=== PATIENT | male | born 1940 | race Caucasian/White ===

== ENCOUNTER 2024-03-08 08:08 | Emergency (ER) | payer MEDICARE, SELFPAY ==
[2024-03-08] VITALS (48 sets, daily range): BP systolic 97–162; BP diastolic 68–99; PULSE 69–160; RESP 12–18; TEMP 37.1; O2SAT 91–98
--- NOTE | 2024-03-08 08:19 | ECG_ITS ---
[facility] Test Date: 2024-03-08 Pat Name: Daniel Hurtado Department: Room: Gender: Male Settlement Clerk: : 1940 Requested By: Bernard Cherry Order Number: [id number] Teresa MD: Joe Pruitt M.D. Measurements Intervals [place] Rate: 69 P: 21 DC: 209 QRS: 13 QRSD: 86 T: 34 QT: 369 QTc: 396 Interpretive Statements SINUS RHYTHM Compared to ECG 03/08/2024 10:20:24 Atrial fibrillation no longer present ST (T wave) deviation no longer present Electronically Signed On 03-09-2024 12:13:13 CDT by Joe Pruitt M.D. [id number] f
--- NOTE | 2024-03-08 08:20 | XRR_ITS ---
PROCEDURE INFORMATION: Exam: XR Chest Exam date and time: 03/08/2024 8:30 AM Age: 83 years old Clinical indication: Cough and dyspnea; Additional info: Dyspnea/cough TECHNIQUE: Imaging protocol: Radiologic exam of the chest. Views: 1 view. COMPARISON: No relevant prior studies available. FINDINGS: Lungs: Mild left basilar lung atelectasis versus developing infiltrate. Suspected myvj-gb-hqaojpts right basilar lung consolidation. Mild right mid lung subsegmental atelectasis Pleural spaces: Mild right pleural effusion, which appears layering versus loculated.. No pneumothorax. Heart/Mediastinum: 19 mm right inferior hilar nodular appearing opacity; cannot exclude adenopathy in this region. No cardiomegaly. Bones/joints: No suspicious osseous findings XR/XR chest 1V portable [id number] IMPRESSION: Chhdl-msxebkf-mzpj-left lung base opacities . See above.
--- NOTE | 2024-03-08 08:21 | ED_ITS ---
HPI - Arrhythmia/Palpitations 2 General: Chief Complaint: Arrhythmia/Palpitations Stated Complaint: elevated hr Time Seen by Provider: 03/08/24 08:17 History of Present Illness: 83-year-old male presents emergency room with rapid heart rate increasing weakness for last couple of days. Few weeks ago was diagnosed with pneumonia. Completed course antibiotics but is still having shortness of breath and generally not feeling well denies any hemoptysis with any activity becomes short of breath. Course 2 Vital Signs: Vital signs: Vital Signs Temperature 98.8 F 03/08/24 08:14 Pulse Rate 70 03/08/24 13:20 Respiratory Rate 16 03/08/24 10:05 Blood Pressure 162/90 03/08/24 13:20 Pulse Oximetry 98 03/08/24 13:20 Oxygen Delivery Me thod Room Air 03/08/24 09:44 MDM - Arrhythmia/Palpitations Medical Decision Making Patient initially presented A-fib with RVR started on Cardizem he did not respond well to that and after titrating up to 15 mg/h we stopped Cardizem and switch to amiodarone. During that same timeframe chest x-ray shows large right pleural effusion CT of the chest was done no PE but did show loculated effusion concerning for a subpulmonic empyema. Cultures done started on antibiotics. Amiodarone did convert to a normal sinus rhythm and we are able to titrate that down and off. Reviewed the case Dr. Sultana initially with plan to admit here however we do not have any pulmonology back up with Dr. Hull is not available either. Ultrasound done with the electrical manufacturing technician at the bedside the effusion is very loculated I do not think we will be able to do a thoracentesis here to get a sample. Dr. Byron Sommers agree patient should be transferred somewhere where pulmonology is available to do a further evaluation to make sure that the patient does not have subpulmonic empyema as opposed to an effusion. Abraham has excepted patient on transfer. Lab Data 03/08/24 08:24 03/08/24 08:24 Radiology Impressions Chest X-Ray 03/08/24 08:20 IMPRESSION: Vfylg-mpstbde-expo-left lung base opacities . See above. Chest CTA 03/08/24 09:02 IMPRESSION: 1. Patient motion artifact degrades the images and limits evaluation. 2. No pulmonary embolism demonstrated. 3. Near-complete RLL collapse, with large pleural effusion surrounding the collapsed RLL, and large loculations of effusion along the right major fissure. Cannot exclude a right subpulmonic effusion component. 4. Lingular and LLL mild tree-in-bud opacities with scattered patchy mild consolidative changes. 5. Chronic findings as above COMMENTS: Consistent with the [employer]'s Incidental Findings Committee white paper (J Am Kimi Radiol 2015): In patients aged 35 years and older with an incidental thyroid nodule equal to or greater than 1.[address], MRI or extrathyroidal US, further evaluation with dedicated thyroid US is recommended for patients with normal life expectancy and without comorbidities. For smaller nodules without suspicious features, no further evaluation or follow up is recommended. Gallbladder Ultrasound 03/08/24 10:18 IMPRESSION: 1. Gallbladder sludge with no changes of acute cholecystitis. No biliary dilatation. 2. Right simple renal cysts. Laboratory Results WBC 16.87 10^3/uL (3.29-11.43) H 03/08/24 08:24 RBC 4.40 10^6/uL (3.85-5.65) 03/08/24 08:24 Hgb 12.30 g/dL (11.27-16.99) 03/08/24 08:24 Hct 36.1 % (37-53) L 03/08/24 08:24 MCV 82.0 fl (82-101) 03/08/24 08:24 MCH 28.0 pg (27-33) 03/08/24 08:24 MCHC 34.1 g/dL (30-55) 03/08/24 08:24 RDW 15.2 % (12.1-15.1) H 03/08/24 08:24 Plt Count 710 10^3/cmm (157-399) H 03/08/24 08:24 MPV 8.5 fL (7.4-10.4) 03/08/24 08:24 Neut % (Auto) 78.7 % 03/08/24 08:24 Lymph % (Auto) 6.8 % 03/08/24 08:24 [place] % (Auto) 13.2 % 03/08/24 08:24 Eos % (Auto) 0.3 % 05/04/24 08:24 Baso % (Auto) 0.2 % 03/08/24 08:24 Neut # (Auto) 13.27 10^3/uL (1.8-7.7) H 03/08/24 08:24 Lymph # (Auto) 1.2 10^3/uL (0.8-4.8) 03/08/24 08:24 [place] # (Auto) 2.2 10^3/uL (0.2-0.9) H 03/08/24 08:24 Eos # (Auto) 0.1 10^3/uL (0.0-0.8) 03/08/24 08:24 Baso # (Auto) 0.0 10^3/uL (0.0-0.1) 03/08/24 08:24 Nucleated RBC % (auto) 0 % 03/08/24 08:24 Nucleated RBCs # 0.0 /100WBC 03/08/24 08:24 Sodium 127 mmol/L (136-145) L 03/08/24 08:24 Potassium 4.0 mmol/L (3.5-5.1) 03/08/24 08:24 Chloride 94 mmol/L (98-107) L 03/08/24 08:24 Carbon Dioxide 20 mmol/L (22-29) L 03/08/24 08:24 Anion Gap 17.0 (5-19) 03/08/24 08:24 BUN 24 mg/dL (8-23) H 03/08/24 08:24 Creatinine 1.7 mg/dL (0.7-1.2) H 03/08/24 08:24 GFR Calculation Not Reportable 03/08/24 08:24 Glucose 123 mg/dL (65-115) H 03/08/24 08:24 Calculated Osmolality 269 mOsm/kg (285-295) L 03/08/24 08:24 Lactic Acid 1.7 mmol/L (0.5-2.2) 03/08/24 08:24 Calcium 8.8 mg/dL (8.5-10.5) 03/08/24 08:24 Total Bilirubin 0.5 mg/dL (0.15-1.2) 03/08/24 08:24 AST 89 U/L (0-40) H 03/08/24 08:24 ALT 127 U/L (0-41) H 03/08/24 08:24 Alkaline Phosphatase 285 U/L (40-130) H 03/08/24 08:24 Troponin T Baseline 19 ng/L (0-15) H 03/08/24 08:24 Troponin T 120 Minute 19.92 ng/L (0-15) H 03/08/24 11:30 Delta Troponin T 0.92 ABS# (0-10) 03/08/24 11:30 NT-Pro-B Natriuret Pep 914 pg/mL (0-450) H 03/08/24 08:24 Total Protein 7.2 g/dL (6.6-8.7) 03/08/24 08:24 Albumin 2.9 g/dL (3.5-5.2) L 03/08/24 08:24 Globulin 4.3 g/dL (1.3-4.6) 03/08/24 08:24 Procalcitonin 0.61 ng/mL (0-0.5) H 03/08/24 08:24 TSH 12.34 uIU/mL (0.27-4.20) H 03/08/24 08:24 Adenovirus (PCR) Not detected (NOT DETECT) 03/08/24 09:49 C. pneumoniae DNA (PCR) Not detected (NOT DETECT) 03/08/24 09:49 Coronavirus 229E (PCR) Not detected (NOT DETECT) 03/08/24 09:49 Human Metapneumovir PCR Not detected (NOT DETECT) 03/08/24 09:49 Influenza A (H1) PCR Not detected (NOT DETECT) 03/08/24 09:49 Influ A (H1/09) PCR Not detected (NOT DETECT) 03/08/24 09:49 Influenza A (H3) PCR Not detected (NOT DETECT) 03/08/24 09:49 Influenza Type A (PCR) Not detected (NOT DETECT) 03/08/24 09:49 Influenza Type B (PCR) Not detected (NOT DETECT) 03/08/24 09:49 M. pneumoniae (PCR) Not detected (NOT DETECT) 03/08/24 09:49 Parainfluenza 1 (PCR) Not detected (NOT DETECT) 03/08/24 09:49 Parainfluenza 2 (PCR) Not detected (NOT DETECT) 03/08/24 09:49 Parainfluenza 3 (PCR) Not detected (NOT DETECT) 03/08/24 09:49 Parainfluenza 4 (PCR) Not detected (NOT DETECT) 03/08/24 09:49 RSV Type A (PCR) Not detected (NOT DETECT) 03/08/24 09:49 RSV Type B (PCR) Not detected (NOT DETECT) 03/08/24 09:49 Entero/Rhino (PCR) Not detected (NOT DETECT) 03/08/24 09:49 SARS-CoV-2 (PCR) Not detected (NOT DETECT) 03/08/24 09:49 All radiology interpretation(s) finalized by discharge Discharge Plan Discharge Patient Disposition: Xfer Short-Term Hosp Clinical Impression: Atrial fibrillation, Pleural effusion, Hyponatremia, MIRNA (acute kidney injury) Condition: Stable Prescriptions: No Action tizanidine 4 mg tablet 2 mg PO BID PRN (Reason: Muscle Spasm) bisoprolol fumarate 5 mg tablet 5 mg PO QPM Rx Instructions: on hold 03/08/2024 simvastatin 20 mg tablet 20 mg PO QAM losartan 100 mg tablet 100 mg PO QAM Rx Instructions: on hold 03/08/24 Mucus Relief Lwak-Ljb-Faac Thr 0-12-242-200 mg Tablet 1 tab PO Q4H PRN (Reason: Cold Symptoms) Referrals: Axel Bustamante DO [Primary Care Provider] - Coding Level of Care Code ED Architectural Associate for Ever Cortes
[2024-03-08 08:30] LABS: Basophils % 0.2 %; Eosinophils # 0.1 10^3/uL (0.0-0.8); Eosinophils % 0.3 %; Hematocrit 36.1 % (37-53); Lymphocytes # 1.2 10^3/uL (0.8-4.8); Lymphocytes % 6.8 %; Mean Corpuscular HGB Conc 34.1 g/dL (30-55); Mean Platelet Volume 8.5 fL (7.4-10.4); Monocytes # 2.2 10^3/uL (0.2-0.9); Monocytes % 13.2 %; Neutrophils # 13.27 10^3/uL (1.8-7.7); Neutrophils % 78.7 %; Nucleated Red Blood Cells % 0 %; Platelet Count 710 10^3/cmm (157-399); Red Cell Distribution Width 15.2 % (12.1-15.1); White Blood Count 16.87 10^3/uL (3.29-11.43)
[2024-03-08] MEDS: dilTIAZem 5 mg/mL SDV 5 mL 10 MG IVP (08:33)
[2024-03-08] MEDS: dilTIAZem 100 MG in sodium chloride 0.9% (add-van) 100 ML IV (08:37)
[2024-03-08 08:52] LABS: Troponin(5th) Baseline 19 ng/L (0-15)
[2024-03-08 08:57] LABS: Alanine Aminotransferase 127 U/L (0-41); Albumin Level 2.9 g/dL (3.5-5.2); Alkaline Phosphatase 285 U/L (40-130); Aspartate Amino Transferase 89 U/L (0-40); Blood Urea Nitrogen 24 mg/dL (8-23); Calcium 8.8 mg/dL (8.5-10.5); Carbon Dioxide 20 mmol/L (22-29); Chloride 94 mmol/L (98-107); Globulin 4.3 g/dL (1.3-4.6); Glucose 123 mg/dL (65-115); Osmolality Calculated 269 mOsm/kg (285-295); Sodium 127 mmol/L (136-145); Thyroid Stimulating Hormone 12.34 uIU/mL (0.27-4.20); Total Bilirubin 0.5 mg/dL (0.15-1.2); Total Protein 7.2 g/dL (6.6-8.7)
--- NOTE | 2024-03-08 09:02 | CTR_ITS ---
PROCEDURE INFORMATION: Exam: CTA Chest With Contrast Exam date and time: 03/08/2024 9:29 AM Age: 83 years old Clinical indication: Dyspnea; Additional info: Peristent pneumonia, chest discomfort, new onset afib TECHNIQUE: Imaging protocol: Computed tomographic angiography of the chest with contrast. Exam focused on the arteries. 3D rendering (Not supervised by radiologist): MIP and/or 3D reconstructed images were created by the technologist. Radiation optimization: All CT scans at this facility use at least one of these dose optimization techniques: automated exposure control; mA and/or kV adjustment per patient size (includes targeted exams where dose is matched to clinical indication); or iterative reconstruction. Contrast material: OMNI 350; Contrast volume: 67 ml; Contrast route: INTRAVENOUS (IV); COMPARISON: CR (CHEST, ) 03/08/2024 8:30 AM RADIATION DOSE METRICS: Total DLP (mGy-cm): 436.73 FINDINGS: Pulmonary arteries: Normal. No pulmonary emboli. Aorta: Upper limits of normal ascending and descending thoracic aorta measuring 40 mm. Thyroid: Left thyroid lobe subcentimeter hypodense nodule; consider nonemergent thyroid ultrasound follow-up for further characterization. Lungs: Near-complete RLL collapse, with large joint effusion surrounding the collapsed lobe, and large loculations effusion along right major fissure. Cannot exclude a right subpulmonic effusion component. Right apical lung nodular pleural thickening and scarring/subsegmental atelectasis. Lingular and LLL mild tree-in-bud opacities with scattered patchy mild consolidative changes. Pleural spaces: See Bones/joints finding. Heart: Borderline to mild cardiomegaly. Lymph nodes: Unremarkable. No enlarged lymph nodes. Pancreas: Prominent pancreatic atrophy Adrenal glands: Indeterminate 8 mm left adrenal nodule. Bones/joints: No suspicious osseous findings. Soft tissues: Unremarkable. CT/CT angio chest PE protcl [id number] IMPRESSION: 1. Patient motion artifact degrades the images and limits evaluation. 2. No pulmonary embolism demonstrated. 3. Near-complete RLL collapse, with large pleural effusion surrounding the collapsed RLL, and large loculations of effusion along the right major fissure. Cannot exclude a right subpulmonic effusion component. 4. Lingular and LLL mild tree-in-bud opacities with scattered patchy mild consolidative changes. 5. Chronic findings as above COMMENTS: Consistent with the [employer] [employer]'s Incidental Findings Committee white paper (J Am Kimi Radiol 2015): In patients aged 35 years and older with an incidental thyroid nodule equal to or greater than 1.[address], MRI or extrathyroidal US, further evaluation with dedicated thyroid US is recommended for patients with normal life expectancy and without comorbidities. For smaller nodules without suspicious features, no further evaluation or follow up is recommended.
--- NOTE | 2024-03-08 09:11 | PC.PHAR ---
pts sister verified pts medications-states the pt finished his prednisone 10mg daily filled 02/23/24 7d/s and doxycycline hyclate 100mg bid filled 02/23/24 10d/s states finished about a week ago-pts sister states put the pts bisoprolol 5mg qpm filled 01/02/2024 90d/s and losartan 100mg qam ext shows last filled 03/18/2023 90d/s both on hold states pt not taken since 03/02/2024-pts sister states the pt is still taking zocor 20mg qam ext shows last filled 03/18/2023 90d/s-pts sister states the pt has been taking some otc mucus relief cold flu and sore throat pill from [facility]-notes are made in the pharmacy comments
[2024-03-08 09:19] LABS: Lactic Sepsis W/Reflex 1.7 mmol/L (0.5-2.2)
[2024-03-08] MEDS: iohexol 350 mg/mL 500 mL Btl (per mL) IV (09:33)
[2024-03-08] MEDS: piperacillin-tazobactam 3.375 GM in sodium chloride 0.9% (plus) 50 ML IV (10:16)
--- NOTE | 2024-03-08 10:18 | USR_ITS ---
PROCEDURE INFORMATION: Exam: US Abdomen, Limited; Right Upper Quadrant Exam date and time: 03/08/2024 10:41 AM Age: 83 years old Clinical indication: Abnormal findings; Abnormal lab test; Abnormal function test of other organs/systems; Additional info: Elevated lft TECHNIQUE: Imaging protocol: Real time ultrasound of the abdomen with image documentation. Limited exam focused on the right upper quadrant. COMPARISON: CT angio chest PE protcl [id number] 03/08/2024 9:29 AM FINDINGS: Liver: Normal. No masses. The liver measures 15.1 cm. Gallbladder: Gallbladder sludge. There is no gallbladder wall thickening. Biliary ducts: Normal. No stones. No dilation. Pancreas: Not well visualized. Right kidney: Normal. No mass. No hydronephrosis. Right kidney measures 10 x 5 x 3.8 cm with renal cortex measuring 1.2 cm. There is a 1.2 x 1.1 x 1 cm simple cyst in the interpolar region of the right kidney. US/US gall bladder [id number] IMPRESSION: 1. Gallbladder sludge with no changes of acute cholecystitis. No biliary dilatation. 2. Right simple renal cysts.
--- NOTE | 2024-03-08 10:20 | ECG_ITS ---
[facility] Test Date: 2024-03-08 Pat Name: Daniel Hurtado Department: Room: Gender: Male Vice President Quality: : 1940 Requested By: Bernard Cherry Order Number: [id number] Teresa MD: Joe Pruitt M.D. Measurements Intervals [place] Rate: 135 P: 0 MA: 0 QRS: 5 QRSD: 81 T: 39 QT: 295 QTc: 443 Interpretive Statements ATRIAL FIBRILLATION WITH RAPID VENTRICULAR RESPONSE MODERATE ST DEPRESSION [0.05+ mV ST DEPRESSION] No previous ECG available for comparison Electronically Signed On 03-09-2024 12:45:26 CDT by Joe Pruitt M.D. [email or web address] Swedenforrest general hospitalNano Defense Solutionsmer[facility].[email or web address]/store/[id number]
--- NOTE | 2024-03-08 10:23 | PC.NURSE ---
per Dr. Puga to increase Cardizem drip to 15mg/hr
[2024-03-08 10:53] LABS: NT Pro B Type Natriuretic Pept 914 pg/mL (0-450); Procalcitonin 0.61 ng/mL (0-0.5)
--- NOTE | 2024-03-08 11:06 | P.CONIM_ITS ---
Providers/Reason For Consult 2 Consulting Physician/Specialty*: Dr. Sultana/internal medicine. Reason for Consult*: Atrial fibrillation, shortness of breath, pneumonitis, possible empyema Primary Care Provider: Axel Bustamante DO History of Present Illness History of Present Illness Daniel Hurtado is a 83 year old male, hard of hearing with past medical history of hypertension, recent pneumonia treated with oral antibiotics presented to the ER because of difficulty in breathing, chest pain and palpitations for last few days worsening today morning associated with weakness and difficulty breathing. In the ER he was found to have a heart rate of more than 150 for which he was started on a Cardizem drip. Medicine was consulted for further management. CT chest was obtained which was concerning for significant right-sided lower lobe pneumonia with concerns for bronchial obstruction and pleural effusion with high concern for empyema. Review of Systems 2 General: Reports: 10 or more systems reviewed and unremarkable except in HPI and below Const: Denies: fever(s), chills, body aches, change in appetite, change in weight, malaise, night sweats, diaphoresis, change in sleep pattern, daytime sleepiness or snoring Eyes: Denies: change in vision, blurry vision, photophobia, eye discomfort or eye discharge ENMT: Denies: throat pain, enlarged tonsils, hoarseness, mouth pain, oral sores, dry mouth, tinnitus, nasal congestion or post nasal drip Card: Denies: chest pain, palpitations, irregular heart rhythm, edema, swelling of feet/ankles, lightheadedness, syncope, pre-syncope, dyspnea on exertion, orthopnea, leg pain with exertion or acrocyanosis Resp: Denies: dyspnea, productive cough, non-productive cough, wheezing, stridor, pain on inspiration, change in phlegm color, hemoptysis or chest congestion GI: Denies: abdominal pain, nausea, vomiting, hematemesis, coffee ground emesis, dysphagia, heartburn, diarrhea, constipation, bloating, GI cramping, change in bowel habits, pain on defecation, hematochezia or melena : Denies: flank pain, difficulty urinating, dysuria, urinary frequency, urinary urgency, urinary hesitancy, urinary dribbling, difficulty starting urination, change in urine stream, nocturia or hematuria Musc: Denies: neck pain, back pain, extremity pain, joint pain, joint swelling, joint redness, joint stiffness or limited range of motion Neuro: Denies: headache(s), numbness in extremities, weakness in extremities, sensory changes, lack of coordination, difficulty walking, frequent falls, dizziness, vertigo, confusion, Slurred speech present, difficulty communicating thoughts or seizure-like activity Psych: Denies: anxiety, depression, mood swings, panic attacks, hopelessness or irritability Endo: Denies: polyuria, polydipsia, tired all the time, cold intolerance, excessive sweating, flushing or heat intolerance Bhanu/Lymph: Denies: easy bruising or easy bleeding All/Imm: Denies: tongue swelling, facial swelling or acute wheezing Medications/Allergies Home Medications Medication Instructions Recorded Confirmed Last Taken Type bisoprolol fumarate 5 mg tablet 5 mg PO QPM 03/08/24 03/08/24 6 Days Ago History ~03/02/24 losartan 100 mg tablet 100 mg PO [facility] 03/08/24 03/08/24 6 Days Ago History ~03/02/24 vsppfjtjzlbcn-ES-vcnqpputnifis-guaifen 1 tab PO Q4H PRN Cold Symptoms 03/08/24 03/08/24 03/08/24 06:00 History 5 mg-10 mg-325 mg-200 mg tablet (Mucus Relief Lukk-Wuz-Vagy Throat) simvastatin 20 mg tablet 20 mg PO QAM 03/08/24 03/08/24 03/08/24 History tizanidine 4 mg tablet 2 mg PO BID PRN Muscle Spasm 03/08/24 03/08/24 Unknown History Allergies Allergy/AdvReac Type Severity Reaction Status Date / Time No Known Allergies Allergy Verified 03/08/24 08:50 Current Medications Generic Name Dose Route Start Last Admin Trade Name Freq PRN Reason Stop Dose Admin Diltiazem HCl 100 mg/ Sodium 100 mls @ 0 mls/hr 03/08/24 08:30 03/08/24 10:23 Chloride IV 15 mg/hr .Q0M YULIANA 15 mls/hr Titration Protocol Per Protocol Vitals/I&O/Wt Last Vital Signs Temp 98.8 F 03/08/24 08:14 Pulse 116 H 03/08/24 10:15 Resp 16 03/08/24 10:05 BP 144/88 03/08/24 10:15 Pulse Ox 95 03/08/24 10:15 O2 Del Method Room Air 03/08/24 09:44 03/07/24 03/08/24 03/08/24 22:59 06:59 14:59 Intake Total 13.416 / 13.416 Balance 13.416 / 13.416 Weight last 48 hrs Weight 94.347 kg Physical Exam 2 Narrative: General: No acute distress, AO x3, hard of hearing HEENT: PERRLA, pupils bilaterally equal and reactive Chest: Normal vesicular breath sounds, coarse rattle present in right lower zone, decreased air entry in right lower zone CVS: S1-S2 irregularly irregular, tachycardia, no gallops, no rubs Abdomen: Soft, nontender, no organomegaly, bowel sounds present Neuro: No focal deficits, no facial deformity, AO x3, power 5/5 in all limbs Data 03/08/24 08:24 03/08/24 08:24 Micro: Microbiology 03/08/24 10:05 Blood Culture - Preliminary Blood SPECIMEN COLLECTED 03/08/24 10:04 Blood Culture - Preliminary Blood SPECIMEN COLLECTED A&P Assessment and plan (1) Sepsis: SIRS: Tachycardic, Febrile, Leukocytosis Source: Right lower lobe pneumonia End organ damage: Atrial fibrillation Lactic acid within normal limits Patient did not receive full 30 mL/kg BW with concerns for fluid overload as he is in atrial fibrillation with rapid ventricular response. Monitor blood pressures. Keep mean artery pressure 65 mmHg. Blood culture, urine culture, MRSA swab, procalcitonin, urine Legionella, bacterial antigen. Check CT chest given recent history of pneumonia. Empirically start on IV vancomycin and Zosyn. Check sputum culture, urine Legionella, bacterial antigen, MRSA swab. De-escalate antibiotics as per culture results. (2) Right lower lobe pneumonia: Recent failed outpatient oral antibiotic therapy. Concerns for bronchial obstruction. Patient will benefit from bronchoscopy and possible suctioning versus further evaluation of lung mass. Antibiotics as #1. (3) Pleural effusion: High concerns for empyema given failure of recent outpatient oral antibiotic. Leukocytosis present. Care discussed in detail with pulmonology who is not available currently. Patient would need diagnostic aspiration of the fluid and most likely would also need chest tube placement. Discussed in detail with Dr. Felton. He tried for diagnostic pleural tap but could not achieve given high loculation of the pleural fluid. Given high concerns for empyema patient needs higher level care with speciality of pulmonology or IR for diagnostic pleural tap placement which is not available in our hospital for next 48 hours. Given the same patient was advised to be transferred to a higher center. (4) Atrial fibrillation: Currently on Cardizem drip. Blood pressure soft. Transition over to IV amiodarone with 150 mg IV bolus. If patient converts to normal sinus rhythm will transition over to oral metoprolol. If patient continues in atrial fibrillation for more than 48 hours we will plan for anticoagulation with Eliquis versus Lovenox. (5) Hyponatremia: Most likely in setting of dehydration. Gentle IV hydration with normal saline at 75 cc/h. Repeat BMP in AM. (6) MIRNA (acute kidney injury): Medical reconciliation done for nephrotoxic drugs. Patient takes losartan at home. Most likely in setting of sepsis, dehydration along with home dose of losartan. Check urine lites, urine creatinine, urine eosinophils, CT abdomen pelvis to rule out obstructive nephropathy. Monitor BMP daily. Plan Full code Consult Attestations 2 Medical Necessity Statement: Patient needs to be transferred to a higher center for management of empyema with need of pulmonology or IR for chest tube placement versus diagnostic pleural tap while continuing on IV antibiotics and treatment of atrial fibrillation Diagnoses Sepsis A41.9 Right lower lobe pneumonia J18.9 Pleural effusion J90 Atrial fibrillation I48.91 Hyponatremia E87.1 MIRNA (acute kidney injury) N17.9
[2024-03-08] MEDS: amiodarone 150 MG/100 ML PREMIX 400 MG IV (11:19)
[2024-03-08 12:01] LABS: Troponin 5 2HR 19.92 ng/L (0-15); Troponin 5 2HR Delta 0.92 ABS# (0-10)
[2024-03-08 13:19] LABS: Adenovirus Not Detected (NOT DETECT); Chlamydia Pneumoniae Not Detected (NOT DETECT); Coronavirus 229E,HKU1,NL63,OC4 Not Detected (NOT DETECT); Human Metapneumovirus Not Detected (NOT DETECT); Human Rhinovirus/Enterovirus Not Detected (NOT DETECT); Influenza A Not Detected (NOT DETECT); Influenza A H1 Not Detected (NOT DETECT); Influenza A H1-2009 Not Detected (NOT DETECT); Influenza A H3 Not Detected (NOT DETECT); Influenza B Not Detected (NOT DETECT); Mycoplasma Pneumoniae Not Detected (NOT DETECT); Parainfluenza Virus Type 1 Not Detected (NOT DETECT); Parainfluenza Virus Type 2 Not Detected (NOT DETECT); Parainfluenza Virus Type 3 Not Detected (NOT DETECT); Parainfluenza Virus Type 4 Not Detected (NOT DETECT); Respiratory Syncytial Virus A Not Detected (NOT DETECT); Respiratory Syncytial Virus B Not Detected (NOT DETECT); SARS-COV-2 Not Detected (NOT DETECT)
--- NOTE | 2024-03-08 14:14 | PC.NURSE ---
report called to Abraham Hdz to Key Peterson, no further questions verbalized at end of report.
--- NOTE | 2024-03-08 14:19 | ECG_ITS ---
[facility] Test Date: 2024-03-08 Pat Name: Daniel Hurtado Department: Room: Gender: Male Custodian Manager: : 1940 Requested By: Bernard Cherry Order Number: [id number] Teresa MD: Joe Pruitt M.D. Measurements Intervals [place] Rate: 119 P: 0 SC: 0 QRS: 46 QRSD: 87 T: 37 QT: 289 QTc: 407 Interpretive Statements ATRIAL FIBRILLATION WITH RAPID VENTRICULAR RESPONSE ST DEPRESSION, CONSIDER SUBENDOCARDIAL INJURY [0.1+ mV ST DEPRESSION] No previous ECG available for comparison Electronically Signed On 03-09-2024 12:45:35 CDT by Joe Pruitt M.D. [email or web address].[email or web address]/[id number]
[2024-03-08 15:08] LABS: Troponin 5 6HR 19.72 ng/L (0-15); Troponin 5 6HR Delta 0.72 ng/L (0-12)
== END 2024-03-08 14:45 | disposition short-term general hospital (02) ==
PROVIDERS: Emergency Provider Family Medicine; PCP Internal Medicine
DX: I48.91 Unspecified atrial fibrillation (principal); J90 Pleural effusion, not elsewhere classified; E87.1 Hypo-osmolality and hyponatremia; N17.9 Acute kidney failure, unspecified; Z11.52 Encounter for screening for COVID-19
CPT/HCPCS: 36415; 71045; 71275; 76705; 80053; 83605; 83880; 84145; 84443; 84484; 85025; 87040; 87486; 87581; 87633; 93005; 96365; 96366; 96367; 96375; 99285; J0283; J2543; J3490; Q9967

== ENCOUNTER 2024-11-28 08:56 | Outpatient (CLI) | payer MEDICARE, SELFPAY ==
--- NOTE | 2024-11-28 09:01 | USCV_ITS ---
Daniel Hurtado Age: 84 Gender: M : 1940 Exam Date: 11/28/2024 09:16 Ordering Phys: Axel Bustamante DO Technologist: CT Exam Location: [facility] [place]_ Indication: BP: / HR: 45 Rhythm: Sinus Technical Quality: Adequate MEASUREMENTS (Male / Female) Normal Values 2D ECHO LVOT Diameter 2.1 cm LV Ejection Fraction MOD 4C 64.1 % LV Ejection Fraction MOD 2C 69.5 % LV Ejection Fraction 2C AL 71.0 % LA Diameter 2.6 cm RA Systolic Volume 4C AL 68.1 ml RA Systolic Volume 4C MOD 68.3 ml LA Sys Volume AL 68.2 cm cubed LA Sys Volume Index AL 30.9 cm cubed/m squared Aorta at Sinotubular Diameter 3.2 cm IVC Diameter 2.4 cm M-MODE LA Ao Ratio MM 1.1 AV Cusp Separation MM 2.0 cm DOPPLER AV Peak Velocity 160.0 cm/s LVOT Peak Velocity 98.0 cm/s AV Area Cont Eq vti 2.0 cm squared AV Area Cont Eq pk 2.0 cm squared MV Peak Velocity 88.0 cm/s MV Area PHT 3.5 cm squared Mitral E to A Ratio 1.2 TV Peak Velocity 256.5 cm/s TR Peak Velocity 253.0 cm/s TR Peak Gradient 25.6 mmHg TR Mean Velocity 222.0 cm/s TR Mean Gradient 21.4 mmHg TR Velocity Time Integral 79.0 cm TV Peak E Velocity 68.0 cm/s PV Peak Velocity 109.0 cm/s FINDINGS Left Ventricle Left ventricle is normal size. LV systolic function is normal with EF of 55-60%. No regional wall motion abnormalities are seen. Right Ventricle Normal in size and function Right Atrium Normal in size Left Atrium Normal in size Mitral Valve Mild mitral annular calcification. Trace mitral regurgitation Aortic Valve Structurally normal mitral valve. No significant stenosis. Mild aortic regurgitation. Tricuspid Valve Mild tricuspid regurgitation. Pulmonary artery systolic pressure is normal. Pulmonic Valve Mild pulmonic regurgitation Pericardium Normal Aorta Ascending aorta is mildly dilated with diameter of 3.55cm IVC Grossly dilated CONCLUSIONS LV systolic function is normal with EF of 55-60%. Trace mitral regurgitation. Mild tricuspid regurgitation Mild pulmonic regurgitation Ascending aorta is mildly dilated with diameter of 3.55 cm. IVC is grossly dilated. No comparison studies are available. Joe Pruitt MD (Electronically Signed) Final Date: 29 November 2024 12:46 S
== END 2024-11-28 08:57 | disposition home or self-care (01) ==
LOC: RAD 08:59
PROVIDERS: Absent Provider Nurse Practitioner Family; PCP Family Medicine; Visit Provider Internal Medicine
DX: R97.20 Elevated prostate specific antigen [PSA] (principal); I34.81 Nonrheumatic mitral (valve) annulus calcification; I35.1 Nonrheumatic aortic (valve) insufficiency; I07.1 Rheumatic tricuspid insufficiency; I37.1 Nonrheumatic pulmonary valve insufficiency; I77.819 Aortic ectasia, unspecified site; R93.1 Abnormal findings on diagnostic imaging of heart and coronary circulation
CPT/HCPCS: 36415; 84153; 93306

== ENCOUNTER → 2024-12-16 15:16 | Outpatient (BNVA) | payer MEDICARE, SELFPAY | PROVIDERS: PCP Family Medicine; Referring Provider Internal Medicine; Visit Provider Internal Medicine Cardiovascular Disease | DX: R07.9 Chest pain, unspecified (principal); R06.02 Shortness of breath; Z79.01 Long term (current) use of anticoagulants; I48.20 Chronic atrial fibrillation, unspecified; R00.1 Bradycardia, unspecified; I51.7 Cardiomegaly; I50.30 Unspecified diastolic (congestive) heart failure; J86.9 Pyothorax without fistula; M79.89 Other specified soft tissue disorders | CPT/HCPCS: 36415; 80048; 83880; 85025; 93005; 93229; 99204 ==